=== PATIENT | female | born 2005 | race African-American/Black ===

== ENCOUNTER 2023-03-22 14:26 | Outpatient (REF) | payer MEDICAID, SELFPAY ==
[2023-03-22 15:07] LABS: Hemoglobin 12.2 g/dl (12.0-16.0)
[2023-03-23 04:47] LABS: HIV AB/AG Nonreactive (Nonreactive); HIV Num 1 0.05 S/CO (0.00-0.99)
[2023-03-23 09:47] LABS: Sickle Cell Scr NEGATIVE (NEGATIVE)
== END 2023-03-22 14:27 | disposition home or self-care (01) ==
LOC: HO.LAB 14:26
PROVIDERS: Visit Provider Family Medicine Adult Medicine
DX: Z11.4 Encounter for screening for human immunodeficiency virus [HIV] (principal); Z13.0 Encounter for screening for diseases of the blood and blood-forming organs and certain disorders involving the immune mechanism
CPT/HCPCS: 36415; 85018; 85660; 87389